=== PATIENT | male | born 1950 | race Caucasian/White ===

== ENCOUNTER 2023-11-23 17:20 | Emergency (ER) | payer MEDICARE, OTHER, SELFPAY ==
[2023-11-23 17:20] VITALS: BMI 27.3
[2023-11-23 17:29] VITALS: BP 153/104
[2023-11-23 17:58] LABS: % Basophils 0.6 % (0-2); % Eosinophils 4.6 % (0-6); % Immature Granulocytes 0.3 % (0-0.5); % Lymphocytes 8.8 % (20.5-51.1); % Monocytes 11.2 % (1.7-9.3); % Neutrophils 74.5 % (42.2-75.2); Absolute Eosinophils 0.3 10^3/uL (0-0.7); Absolute Lymphocytes 0.6 10^3/uL (1.2-3.4); Absolute Monocytes 0.8 10^3/uL (0.1-0.6); Absolute Neutrophils 5.2 10^3/uL (1.4-6.5); Hematocrit 42.9 % (39.0-52.0); Hemoglobin 14.6 g/dL (13.0-18.0); Mean Corpuscular Hgb 29.1 pg (27.0-31.0); Mean Corpuscular Volume 85.5 fL (80.0-94.0); Mean Platelet Volume 9.7 fL (7.4-10.4); Nucleated Red Blood Cells % 0 % (-); Platelet Count 211 10^3/uL (130-400); Red Blood Cell Count 5.02 10^6/uL (4.70-6.10); Red Cell Dist. Width 15.2 % (11.5-14.5)
[2023-11-23 18:06] LABS: ALT (SGPT) 56 U/L (0-50); AST (SGOT) 44 U/L (17-59); Albumin 4.2 g/dl (3.5-5.0); Alkaline Phosphatase 74 U/L (38-126); Blood Urea Nitrogen 10 mg/dl (9-20); Calcium 9.6 mg/dl (8.4-10.2); Carbon Dioxide 32 mmol/L (22-30); Chloride 98 mmol/L (98-107); Glucose 115 mg/dl (70-99); Lactic Acid 1.3 mmol/L (0.7-2.0); Potassium 4.1 mmol/L (3.5-5.1); Sodium 137 mmol/L (135-145); Total Bilirubin 1.1 mg/dl (0.2-1.3); Total Protein 6.6 g/dl (6.3-8.2); eGFR > 60.00
[2023-11-23 18:33] LABS: COVID-19 Antigen Negative (Negative)
[2023-11-23 21:48] VITALS: BP 145/99
--- NOTE | 2023-11-23 21:58 | ED.GENMED ---
History of Present Illness
General
Chief Complaint: Breathing Problem
Source: patient
Exam Limitations: none
Time Seen by Provider: 11/23/23 21:47
Travel History
Have you had any contact with someone who has COVID-19?: No
Do you have any symptoms of coronavirus? Fever > 100 degrees, chills, cough, shortness of breath, sore throat, loss of taste or smell, muscle aches, or headache?: No
History of Present Illness
History of Present Illness:
See MDM
Past History
Past History
ED Past Medical History: Arrthythmia and HTN
ED Past Surgical History: None
Social History
Tobacco: Non-smoker
Alcohol: None
Phy Exam
Physical Exam
Physical Exam:
See MDM
Scores
Heart Failure Risk
Heart Failure Risk Score: Not Applicable
Course
Orders/Labs/Results
Orders:
Orders
11/23/23 17:33
CR Chest - 2 Views Urgent
Comment:
Reason For Exam: SOB
11/23/23 17:42
COVID-19 Antigen Urgent
Source: Nasal Swab
Complete Blood Count/With Diff Urgent
Comprehensive Metabolic Panel Urgent
Lactic Acid Urgent
NT-proBNP Urgent
Comment: ADD ON
Troponin I Urgent
Comment: ADD ON
Blood Culture Urgent
TARUN Source: Blood/Venous
Specimen Description:
Influenza A+B Rapid Molecular Urgent
TARUN Source: Nasal Swab
Specimen Description:
11/23/23 18:24
Add On- LAB Urgent
Tests Added?: bnp
11/23/23 21:57
Add On- LAB Urgent
Tests Added?: Troponin I
Azithromycin [Zithromax] 500 mg PO NOW STA
Dexamethasone Pf [Decadron] 10 mg PO NOW STA
Ipratropium/Albuterol Sulfate [Duoneb] 3 ml INH R NOW STA
11/23/23 21:58
Electrocardiogram (*1) Urgent
Reason for Study: Shortness of Breath
EKG- Treatment ONCE
Abnormal Lab Results
11/23/23
17:42
RDW 15.2 H %
(11.5-14.5)
Absolute Lymphs (auto) 0.6 L 10^3/uL
(1.2-3.4)
Absolute Monos (auto) 0.8 H 10^3/uL
(0.1-0.6)
Lymphocytes % 8.8 L %
(20.5-51.1)
Monocytes % 11.2 H %
(1.7-9.3)
Carbon Dioxide 32 H mmol/L
(22-30)
Glucose 115 H mg/dl
(70-99)
ALT 56 H U/L
(0-50)
11/23/23 17:42
11/23/23 17:42
Vital Signs
Initial and Last Documented VS:
Initial Vital Signs
Temp Pulse Resp BP Pulse Ox
98.1 F 83 20 153/104 95
11/23/23 17:29 11/23/23 17:29 11/23/23 17:29 11/23/23 17:29 11/23/23 17:29
Last Documented Vital Signs
Temp Pulse Resp BP Pulse Ox
98.1 F 77 21 153/86 97
11/23/23 17:29 11/23/23 22:45 11/23/23 22:45 11/23/23 22:00 11/23/23 22:45
MDM/Problems Addressed
Differential Diagnosis Includes:
HPI and MDM Narrative:
72-year-old male presenting for evaluation of shortness of breath and cough. Patient developed nasal congestion few days ago. He has since developed postnasal drip and is developing shortness of breath when he walks. He has noted wheezing. This
is similar presentation to a prior episode where he was diagnosed with respiratory infection.
On exam, patient does have expiratory wheezing. Chest x-ray clear. Will check EKG, troponin and give Decadron, azithromycin and DuoNeb
Physical exam
General: Well appearing and non-toxic
HEENT: protecting airway
Neck: appears supple
CV: No evidence of cyanosis. Irregular rhythm.
Resp: No accessory muscle use. Expiratory wheezing
Abd: Non-distended
Extremities: No deformities
Neuro: alert
Psych: Normal affect
Skin: Intact
Problems Addressed including Acute and Chronic Conditions affecting care:
1. Bronchitis
Acuity: acute
Prognosis: stable
Details: Chest x-ray clear. Will start steroids and DuoNeb and azithromycin
Updates
On reassessment, patient feeling much better and feels comfortable going home. We discussed the elevated BNP but there is no clinical signs of congestive heart failure. Discussed having this reevaluated by his doctors
Differential Diagnosis (but not limited to): ACS, pneumonia, bronchitis
Testing considered: D-dimer but patient anticoagulated
Drug therapy (if applicable): OTC meds, please see d/c instruction regarding Rx drugs
Amount and/or Complexity of Data Reviewed
Clinical info obtained from: Patient
External data reviewed: N/A
Labs I independently reviewed (but not limited to): White blood cell count normal. Troponin negative. BNP mildly elevated
Radiology: X-ray independently reviewed: X-ray independently reviewed:
Pulse Ox: not hypoxic
EKG independently reviewed: sinus rhythm with PACs, left axis, no STEMI
Canary Breeder: Sinus rhythm with PACs
Critical Care: N/A
Risk of Complication:
Social Determinants of health: Good social support
Discussed with other providers: N/A
Escalation of Care includes Admit/Obs: After being observed in the Emergency Department, pt stable for discharge.
Occasional wrong word or 'sound a like' substitutions may have occurred due to the inherent limitations of voice recognition software. Read the chart carefully and recognize, using context, where substitutions have occurred.
*Critical Care Note
Total Time (30-74mins, 75-104mins- exclusive of procedures): Not Applicable
ED Attending Note
-
Portions of this chart may have been created with voice recognition software.� Occasional wrong word or��sound alike� substitutions may have occurred due to the inherent limitations of voice recognition software.
Discharge Plan
Departure
Patient Disposition: Home (Routine Discharge)
Date of Disposition: 11/24/23
Time of Disposition: 00:15
Patient with high blood pressure during this ER visit?: Yes
Discharge Problem:
Acute bronchitis
Instructions: Acute Bronchitis, Adult (DC)
Prescriptions:
New
albuterol sulfate [ProAir HFA] 90 mcg/actuation Hfa Aerosol Inhaler
1 puff INHALATION Q4HPRN PRN (Reason: shortness of breath) Qty: 8.5 0RF
methylprednisolone [Medrol (Jeovany)] 4 mg tablets,dose pack
See Rx Instructions .ROUTE .COMPLEX Qty: 21 0RF
Rx Instructions:
orally per package directions
azithromycin 250 mg tablet
250 mg PO DAILY 4 Days Qty: 4 0RF
Referrals:
Rosaura Teague MD [Family Provider] -
Activity Restrictions/Additional Instructions:
Please return for any worsening symptoms.
You may return at any time if you have further concerns.
Please follow up with your doctor at the first available appointment, preferably this week.
Thank you for choosing [facility].
Interventions
Interventions:
*Risk Screen - Suicide Last Done: 11/23/23 17:29
*General Assessment Last Done: 11/23/23 17:29
ED- Fall Risk Assessment Last Done: 11/23/23 21:30
*ED COVID-19 Vaccine History Last Done: 11/23/23 21:29
ED- Cardiac Assessment Last Done: 11/23/23 21:30
ED- Pulmonary Assessment Last Done: 11/23/23 21:30
[2023-11-23 22:00] VITALS: BP 153/86
[2023-11-23 22:03] LABS: NT-proBNP 2190 pg/ml
[2023-11-23] MEDS: DECADRON 10 MG PO (22:11)
[2023-11-23] MEDS: ZITHROMAX 500 MG PO (22:11)
[2023-11-23] MEDS: DUONEB 3 ML INH (22:11)
[2023-11-23 22:24] LABS: Troponin I 0.022 ng/ml
[2023-11-23 23:00] VITALS: BP 151/99
[2023-11-24] VITALS: BP 153/108
== END 2023-11-24 00:58 | disposition home or self-care (01) ==
LOC: EMR 17:20
PROVIDERS: Emergency Medicine; EMERGENCY PHYSICIAN Student in an Organized Health Care Education/Training Program; FAMILY PHYSICIAN Family Medicine
DX: J20.9 Acute bronchitis, unspecified (principal); I10 Essential (primary) hypertension
CPT/HCPCS: 99283; 94640; 71046; 80053; 83605; 83880; 84484; 85025; 87040; 87502; 87811; 93005

== ENCOUNTER 2024-04-27 17:17 | Emergency (ER) | payer MEDICARE, OTHER, SELFPAY ==
[2024-04-27 17:21] VITALS: BP 154/118
[2024-04-27 18:04] VITALS: BMI 26.4
[2024-04-27 18:17] VITALS: BP 151/128
--- NOTE | 2024-04-27 18:17 | ED.GENMED ---
History of Present Illness
General
Chief Complaint: Breathing Problem
Source: patient
Exam Limitations: none
Time Seen by Provider: 04/27/24 17:59
History of Present Illness
History of Present Illness:
This is a 73 year old male that comes in with c/o SOB. States that he started with a cold on Tuesday. States that yesterday he started with SOB that was worse and today he feels that is is bad again. States that if he goes up the steps he has to sit
down. States that he can't take a dep breath. States that he is coughing. Denies any fever, chills, chest pain, abd pain, nausea, vomiting, diarrhea, headache, dizziness, urinary burning.
Past History
Past History
ED Past Medical History: Arrthythmia (Atrial fib), Asthma, HTN and Hypercholesterolemia
ED Past Surgical History: Orthopedic (Xavier wrist surgery, Nasal surgery)
Social History
Tobacco: Non-smoker
Alcohol: Occasional
Personal:
Living: with family
Review of Systems
Review of Systems
All Other Systems: ROS reviewed and negative except as documented in HPI and ROS
Constitutional: Reports no symptoms; Denies fever or chills
EENT: Reports no symptoms
Respiratory: Reports cough and trouble breathing
Cardiac: Denies chest pain
ABD/GI: Reports no symptoms; Denies abdominal pain, nausea, vomiting or diarrhea
: Reports no symptoms; Denies dysuria, frequency or urgency
Musculoskeletal: Reports no symptoms
Skin: Reports no symptoms
Neurological: Reports no symptoms; Denies dizzy or headache
Psychiatric: Reports no symptoms
Phy Exam
General Physical Exam
General Presentation: no apparent distress
General age: appears stated age
General Skin: warm and dry
General Habitus: elderly
General Mental: alert
General Hydration: dry mucous membranes
ENT Exam
ENT Exam: TM's normal, pharynx normal and neck supple
Eye Exam
Eye Exam: EOMI
Cardiovascular Exam
Cardiovascular Exam: no edema, normal peripheral pulses and irregularly irregular
Pulmonary Exam
Pulmonary Exam: no respiratory distress, no rales, chest non tender, no crackles, no rhonchi and other (Exp wheezing throughout, Occasional dry cough noted)
Gastrointestinal Exam
Gastrointestinal Exam: normal bowel sounds, non tender, soft, no organomegaly, no pulsatile mass and non distended
Musculoskeletal Exam
Musculoskeletal Exam: full ROM and no edema
Skin Exam
Skin Exam: normal color, warm/dry, no rash and no petechia
Psychiatric Exam
Psychiatric Exam: normal mood/affect
Scores
Heart Failure Risk
Heart Failure Risk Score: Not Applicable
Course
Orders/Labs/Results
Orders:
Orders
04/27/24 17:24
Electrocardiogram (*1) Urgent
Reason for Study: Chest Pain
EKG- Treatment ONCE
04/27/24 18:15
BNP [NT-proBNP] Urgent
COVID-19 Antigen Urgent
Source: Nasal Swab
Complete Blood Count/With Diff Urgent
Comprehensive Metabolic Panel Urgent
Troponin I Urgent
04/27/24 18:17
Dexamethasone Sod Phosphate [Decadron] 20 mg IV NOW STA
Ipratropium/Albuterol Sulfate [Duoneb] 3 ml INH R NOW ONE
CR Chest - 2 Views Urgent
Comment:
Reason For Exam: SOB
Abnormal Lab Results
04/27/24
18:15
MCH 26.7 L pg
(27.0-31.0)
MCHC 32.7 L g/dL
(33.0-37.0)
RDW 16.3 H %
(11.5-14.5)
Absolute Lymphs (auto) 0.7 L 10^3/uL
(1.2-3.4)
Absolute Monos (auto) 0.9 H 10^3/uL
(0.1-0.6)
Lymphocytes % 9.3 L %
(20.5-51.1)
Monocytes % 12.5 H %
(1.7-9.3)
Eosinophils % 7.2 H %
(0-6)
Glucose 116 H mg/dl
(70-99)
04/27/24 18:15
04/27/24 18:15
Glucose nonfasting. Troponin <0.012, Pro-BNP 1970, COVID negative.
Vital Signs
Initial and Last Documented VS:
Initial Vital Signs
Temp Pulse Resp BP Pulse Ox
97.5 F 104 20 154/118 96
04/27/24 17:21 04/27/24 17:21 04/27/24 17:21 04/27/24 17:21 04/27/24 17:21
Last Documented Vital Signs
Temp Pulse Resp BP Pulse Ox
97.5 F 106 17 150/94 96
04/27/24 17:21 04/27/24 19:30 04/27/24 19:30 04/27/24 19:30 04/27/24 18:45
MDM/Problems Addressed
Differential Diagnosis Includes:
Asthma, COVID
MDM/Problems Addressed:
This is a 73 year old male that comes in with c/o SOB. States that he started with a cold on Tuesday and know he has SOB that when he goes up the steps he has to sit down.
Will get labs, COVID, Chest X-ray, duo and steroids.
Back into see patient. Patient states that he is feeling much better. Explained that his wheezing is most likely due to his cold. Will place patient on Predinson for the next 5 days. patient can use his inhaler ever 4 hours if needed. Will also give
patient the name of a field sales specialist for further evaluation. Patient to return with any concerns.
Chronic conditions affecting care: Asthma
Acute Exacerbation and/or Progression of Chronic Illness: Asthma
*Radiology
Radiology exam reviewed: radiology read reviewed (Chest-No acute cardiopulmonary abnormality)
*Pulse Oximetry
Patient hypoxic: no
*EKG
Interpreted by ED Provider?: Yes
Heart Rate: 84
Rate: normal
Rhythm: a-fib
Norman: normal axis
QRS Pattern: normal QRS
Ischemia: no ischemia
*Web Content Manager Interpretation
Rate: normal
Heart Rate: 96
Rhythm: a-fib
*Critical Care Note
Total Time (30-74mins, 75-104mins- exclusive of procedures): Not Applicable
ED Attending Note
-
Portions of this chart may have been created with voice recognition software.� Occasional wrong word or��sound alike� substitutions may have occurred due to the inherent limitations of voice recognition software.
Discharge Plan
Departure
Patient Disposition: Home (Routine Discharge)
Date of Disposition: 04/27/24
Time of Disposition: 19:45
Patient with high blood pressure during this ER visit?: Yes
Condition: Good
Covid-19: Negative COVID-19
Discharge Problem:
Bilateral wheezing
Instructions: Asthma, Adult (DC), BLOOD PRESSURE
Prescriptions:
New
prednisone 20 mg tablet
40 mg PO DAILY Qty: 10 0RF
No Action
albuterol sulfate [ProAir HFA] 90 mcg/actuation Hfa Aerosol Inhaler
1 puff INHALATION Q4HPRN PRN (Reason: shortness of breath) Qty: 8.5 0RF
methylprednisolone [Medrol (Jeovany)] 4 mg tablets,dose pack
See Rx Instructions .ROUTE .COMPLEX Qty: 21 0RF
Rx Instructions:
orally per package directions
azithromycin 250 mg tablet
250 mg PO DAILY 4 Days Qty: 4 0RF
Referrals:
UNKNOWN - PT DOES,NOT KNOW [Family Provider] -
Activity Restrictions/Additional Instructions:
As discussed, your blood work is normal. Your troponin is normal and your chest x-ray is negative for any acute process. You are COVID negative. Your cold has most likely triggered your asthma. You have been IV Decadron here and a a prescription for
Prednisone has been sent to your Pharmacy for the next 5 days. You may also use your Inhaler 2 puffs every 4 hours as needed for any wheezing or chest tightness. IF YOU HAVE INCREASED OR CHANGING CHEST PAIN, SHORTNESS OF BREATH OR YOU HAVE ANY OTHER
CONCERNS PLEASE RETURN TO THE EMERGENCY ROOM.
Interventions
Interventions:
*Risk Screen - Suicide Last Done: 04/27/24 17:21
*General Assessment Last Done: 04/27/24 17:21
*Neglect/Abuse Screening Last Done: 04/27/24 17:21
ED- Cardiac Assessment Last Done: 04/27/24 18:18
ED- Pulmonary Assessment Last Done: 04/27/24 18:18
Discharge Date and Time
Print Language: LATVIAN
[2024-04-27 18:21] LABS: % Basophils 0.9 % (0-2); % Eosinophils 7.2 % (0-6); % Immature Granulocytes 0.1 % (0-0.5); % Lymphocytes 9.3 % (20.5-51.1); % Monocytes 12.5 % (1.7-9.3); Absolute Basophils 0.1 10^3/uL (0-0.2); Absolute Eosinophils 0.5 10^3/uL (0-0.7); Absolute Lymphocytes 0.7 10^3/uL (1.2-3.4); Absolute Monocytes 0.9 10^3/uL (0.1-0.6); Absolute Neutrophils 5.3 10^3/uL (1.4-6.5); Hematocrit 44.9 % (39.0-52.0); Hemoglobin 14.7 g/dL (13.0-18.0); Mean Corp Hgb Conc. 32.7 g/dL (33.0-37.0); Mean Corpuscular Hgb 26.7 pg (27.0-31.0); Mean Corpuscular Volume 81.5 fL (80.0-94.0); Mean Platelet Volume 9.4 fL (7.4-10.4); Nucleated Red Blood Cells % 0 % (-); Platelet Count 198 10^3/uL (130-400); Red Blood Cell Count 5.51 10^6/uL (4.70-6.10); Red Cell Dist. Width 16.3 % (11.5-14.5); White Blood Cell Count 7.5 10^3/uL (4.8-10.8)
[2024-04-27] MEDS: DECADRON 20 MG IV (18:27)
[2024-04-27] MEDS: DUONEB 3 ML INH (18:29)
[2024-04-27 18:30] VITALS: BP 152/108
[2024-04-27 18:34] LABS: COVID-19 Antigen Negative (Negative)
[2024-04-27 18:39] LABS: ALT (SGPT) 26 U/L (0-50); AST (SGOT) 31 U/L (17-59); Albumin 4.2 g/dl (3.5-5.0); Alkaline Phosphatase 62 U/L (38-126); Blood Urea Nitrogen 14 mg/dl (9-20); Calcium 9.3 mg/dl (8.4-10.2); Carbon Dioxide 30 mmol/L (22-30); Chloride 99 mmol/L (98-107); Estimated Creatinine Clearance 80 ml/min; Glucose 116 mg/dl (70-99); Potassium 3.9 mmol/L (3.5-5.1); Sodium 137 mmol/L (135-145); Total Bilirubin 0.8 mg/dl (0.2-1.3); Total Protein 6.3 g/dl (6.3-8.2); eGFR > 60.00
[2024-04-27 18:51] LABS: NT-proBNP 1970 pg/ml; Troponin I < 0.012 ng/ml
[2024-04-27 18:55] VITALS: BP 154/114
[2024-04-27 19:00] VITALS: BP 143/116
[2024-04-27 19:30] VITALS: BP 150/94
== END 2024-04-27 20:01 | disposition home or self-care (01) ==
LOC: EMR 17:17
PROVIDERS: Clinical Nurse Specialist Family Health; EMERGENCY PHYSICIAN Emergency Medicine
DX: R06.2 Wheezing (principal); Z11.52 Encounter for screening for COVID-19; J45.909 Unspecified asthma, uncomplicated; I10 Essential (primary) hypertension; E78.00 Pure hypercholesterolemia, unspecified; I48.91 Unspecified atrial fibrillation
CPT/HCPCS: 99284; 96374; 94640; 71046; 80053; 83880; 84484; 85025; 87811; 93005

== ENCOUNTER 2024-07-18 05:53 | Day surgery (SDC) | payer MEDICARE, OTHER, SELFPAY ==
[2024-07-11 11:54] VITALS: BMI 26.6
[2024-07-18] VITALS (13 sets, daily range): BP systolic 80–138; BP diastolic 54–108; BMI 26.3
[2024-07-18 08:52] LABS: ACT-LR - POC 337 Seconds (116-155)
[2024-07-18 09:16] LABS: ACT-LR - POC 321 Seconds (116-155)
[2024-07-18 09:45] LABS: ACT-LR - POC 318 Seconds (116-155)
--- NOTE | 2024-07-18 10:43 | ITS.CL.ABL ---
Jd Edwards - Ablation
Ablation
Procedure Report:
ELECTROPHYSIOLOGIC STUDY AND POSSIBLE ABLATION
DATE: 07/18/26
Primary Care Provider: Dr Rosaura Teague
INDICATION:
Symptomatic Atrial Fibrillation.
Persistent
HISTORY: See H and P.
Symptomatic AF, poorly controlled with attempted medical therapy.
He remains symptomatic with AF despite metoprolol. He also has a history of PVCs for which beta-blockers have provided some symptomatic relief.
He has been maintained on oral anticoagulation.
He has experienced successful cardioversions in the past, but more recently there was attempted cardioversion May 02, 2024 which failed to restore sinus rhythm.�
He also has a history of coronary artery disease and a coronary calcium score total of 1726 (1084 at the LAD, 311 at the left circumflex and 331 at the RCA, 0 at the left main ) but a nonischemic nuclear stress test in 2021 and no anginal symptoms.�
He has hypertension requiring multidrug treatment.
Echocardiogram report dated April 24, 2024 finds normal LV size and function with ejection fraction of 50 to 55%, grade 2 diastolic dysfunction, left atrium is upper limit of normal and the right atrium is noted to be dilated. Normal RV size and
function.� Mild mitral regurgitation and mild to moderate tricuspid regurgitation without pulmonary hypertension.�
HAS-BLED: 1
Age
CHADSVASc: 2
HTN
Age
PRESENTING RHYTHM: AF
HISTORY: See H and P.
Symptomatic AF, poorly controlled with attempted medical therapy.
ANTICOAGULATION: Eliquis 5 mg twice daily
'TIME-OUT': called and confirmed.
SEDATION/ANESTHESIA: provided via the anesthesia department using general anesthesia.
PROCEDURE:
Ultrasound Guidance performed by or was utilized for femoral venous Vascular Access b/l.
A decapolar CS catheter was placed within the CS for mapping and pacing.
The intracardiac ultrasound catheter was positioned in the RA for continuous intracardiac ultrasound imaging.
Heparin bolus and infusion to target ACT at 300 -350 seconds was administered. Transseptal puncture was performed. This entailed advancing a sheath with dilator into the superior vena cava and withdrawing both (monitoring intracardiac ultrasound,
fluoroscopy and tip pressure) with the tip oriented toward the atrial septum. The fossa ovalis was engaged (indicated by sudden displacement of the sheath tip as well as tenting of the fossa seen on intracardiac ultrasound).
AcQCross transseptal system was used. Left atrial catheter position was confirmed by echocardiographic imaging, pressure monitoring (LA mean pressure 11 mm Hg) and fluoroscopy. The sheath was advanced over the dilator and positioned in the left
atrium.
The multipolar Grid mapping catheter was initially positioned through the transseptal sheath for high density mapping. Cardioversion restored sinus rhythm but AF rapidly recurred.
Geometry and voltage mapping was performed using the [employer] multipolar grid catheter. Ensite-X was utilized for three-dimensional electroanatomical mapping.
A 3-D map was created using Ensite-X in Voxel mode. A 3-D reconstructed CT image was compared to the 3-D Navex map to assist in anatomic evaluation, mapping and ablation.
The Alloy Digital Pulse Select PFA catheter and system was used for cardiac ablation. Catheter positioning was guided and confirmed using both I.C.E. and fluoroscopy.
PV isolation approach was used to electrically isolate each PV ostia (LSPV, LIPV, RSPV, RIPV).
Additional energy applications/additional ablation set was required to accomplish wide area circumferential ablation around each of the pulmonary vein sets and additionally ablation to accomplish LA posterior wall ablation.
Remapping with the Parra multipolar grid catheter found that all PVPs were eliminated at each vein demonstrating entrance block. Also pacing from the multipolar mapping catheter around the the circumference of the ostia was performed at 10 ma and
2.0 msec output to assess for exit block. This demonstrated electrical isolation at each of the pulmonary vein ostia (LSPV, LIPV, RSPV, RIPV). There is also entrance and exit block at the LA posterior wall.
There are spontaneous runs of atrial tachycardia 330 ms. The tachycardia would spontaneously terminate and then spontaneously recur and could also be transiently induced with burst atrial pacing. Both right atrial and left atrial high density
electroanatomical activation maps were obtained. Earliest activation in the right atrium septal just posterior and superior to the His bundle recording. Entrainment from right atrial sites finds long post pacing intervals. Mapping in the left
atrium finds focal atrial tachycardia with breakout from the left side of the interatrial septum just outside the haven between the right sided pulmonary veins. Pulsed electric field energy was then delivered to the targeted area eliminating any
further spontaneous runs of atrial tachycardia. Additionally programmed electrical stimulation now failed to induce any arrhythmias. This is a marked contrast to the preablation state.
I.C.E. :
Pre-Ablation Post-Ablation
LVEF: 55 % 55 %
WMA: none none
Pericardial effusion: none none
COMPLICATIONS:
None
SUMMARY:
- Mapping and ablation to isolate the PVs
- Additional AF ablation set after PVI (left atrial posterior wall mapping and ablation).
- Mapping and ablation of second tachycardia (focal left atrial tachycardia mapping and ablation)
- 3-D Electroanatomical Mapping
- Intracardiac Ultrasound
Post ablation, I discussed today's findings and results with the patient's , Polly.
RECOMMENDATIONS:
- Observe in monitored bed.
- Maintain oral anticoagulation.
- Office visit with me in 3-4 months.
Copy to:
Dr Rosaura Teague
--- NOTE | 2024-07-18 13:22 | W.PN.UPDATE ---
Update Note
Progress Note Update
73 yo WM s/p PVI (same day). He denies cp, sob, karlos diet, voiding, EKG SR occ PAC/PAT, R fem site VASCADE c/d/i no HT, soft. He will resume Eliquis tonight at home. Activity restrictions reviewed. He will f/u [facility]TAIN in 3 mo. He is for d/c home after 1pm.
SUMMARY:
- Mapping and ablation to isolate the PVs
- Additional AF ablation set after PVI (left atrial posterior wall mapping and ablation).
- Mapping and ablation of second tachycardia (focal left atrial tachycardia mapping and ablation)
- 3-D Electroanatomical Mapping
- Intracardiac Ultrasound
Post ablation, I discussed today's findings and results with the patient's , Polly.
RECOMMENDATIONS:
- Observe in monitored bed.
- Maintain oral anticoagulation.
- Office visit with me in 3-4 months.
== END 2024-07-18 13:33 | disposition home or self-care (01) ==
LOC: CATH 05:53
PROVIDERS: ATTENDING PHYSICIAN Internal Medicine Cardiovascular Disease; FAMILY PHYSICIAN Family Medicine
DX: I48.19 Other persistent atrial fibrillation (principal); I10 Essential (primary) hypertension; I08.1 Rheumatic disorders of both mitral and tricuspid valves; Z79.01 Long term (current) use of anticoagulants; E78.00 Pure hypercholesterolemia, unspecified; I47.19 Other supraventricular tachycardia; I49.1 Atrial premature depolarization; I25.10 Atherosclerotic heart disease of native coronary artery without angina pectoris
CPT/HCPCS: C1894; C1769; C1730; C1892; C1759; C1732; 85347; 86900; 86901; 93005; 93655; 93656; 93657; C1733; C1766

== ENCOUNTER → 2025-02-07 08:29 | Outpatient (REF) | payer MEDICARE, OTHER, SELFPAY | LOC: RCS 08:29 | PROVIDERS: ATTENDING PHYSICIAN Internal Medicine Cardiovascular Disease; FAMILY PHYSICIAN Family Medicine | DX: R06.02 Shortness of breath (principal) | CPT/HCPCS: 78452; 93017; A9500; J2785 ==